=== PATIENT | male | born 1950 | race African-American/Black ===

== ENCOUNTER 2018-10-14 16:27 | Emergency (ER) | payer MEDICARE, OTHER ==
[~2018-10-14] VITALS: Ht 182.9 cm; Wt 86.4 kg
[~2018-10-14 16:27] MED LIST: ASPI81TA39 PO; OMEP20 PO
[2018-10-14 16:52] VITALS: BP 107/68
[2018-10-14] MEDS ORDERED: BACLOFEN 10 MG TABLET PO ONE (17:15)
[2018-10-14] MEDS ORDERED: KETOROLAC TROMETHAMINE 30 MG/ML VIAL IM ONE (17:15)
== END 2018-10-14 18:40 | disposition home or self-care (01) ==
LOC: EMS 16:27
DX: R25.2 Cramp and spasm (principal); M79.604 Pain in right leg; M79.605 Pain in left leg; G89.29 Other chronic pain; F17.210 Nicotine dependence, cigarettes, uncomplicated; K21.9 Gastro-esophageal reflux disease without esophagitis; Z79.82 Long term (current) use of aspirin
CPT/HCPCS: 96372; 99283; 99406; J1885

== ENCOUNTER 2019-01-10 09:40 | Emergency (ER) | payer MEDICARE, OTHER ==
[~2019-01-10] VITALS: Ht 182.9 cm; Wt 86.4 kg
[2019-01-10] MEDS ORDERED: ONDANSETRON HCL 4 MG TABLET PO ONE (11:00)
[2019-01-10] MEDS ORDERED: MAG HYDROX/AL HYDROX/SIMETH ES 30 ML SUSPENSION UDCUP PO ONE ×2 (11:00→12:45)
[2019-01-10 11:13] LABS: BASOPHILS % (AUTO) 0.8 % (0.0-2.0); EOSINOPHILS % (AUTO) 3.8 % (1.0-6.0); HEMATOCRIT 41.1 % (41-53); HEMOGLOBIN 13.7 g/dL (13.5-17.5); LYMPHOCYTES # (AUTO) 0.8 K/uL (1.0-4.8); MEAN CORPUSCULAR HEMOGLOBIN 35.3 pg (26.0-34.0); MEAN CORPUSCULAR HGB CONC 33.4 G/dL (31.0-37.0); MEAN CORPUSCULAR VOLUME 106 fL (80-100); MONOCYTES # (AUTO) 0.4 K/uL (0.1-1.0); MONOCYTES % (AUTO) 11.2 % (2.0-9.0); NEUTROPHILS # (AUTO) 2.1 K/uL (1.8-7.7); NEUTROPHILS % (AUTO) 60.2 % (40.0-70.0); PLATELET COUNT (AUTO) 171 K/uL (150-450); RED CELL DISTRIBUTION WIDTH 13.9 % (11.5-14.5)
[2019-01-10 11:18] LABS: ANION GAP 13 mmol/L (8-16); CALCIUM, TOTAL 8.6 mg/dL (8.8-10.5); CARBON DIOXIDE 24 mmol/L (22-29); CHLORIDE 102 mmol/L (98-107); CREATININE 1.14 mg/dL (0.60-1.30); GLOMERULAR FILTR. RATE CALC > 60 mL/min (>60); GLUCOSE,RANDOM 89 mg/dL (70-110); POTASSIUM 3.3 mmol/L (3.5-5.1); SODIUM SERUM 139 mmol/L (136-145); UREA NITROGEN, BLOOD 13 mg/dL (7-18)
[2019-01-10 11:23] LABS: ALANINE AMINOTRANSFERASE 33 U/L (12-78); ALBUMIN 3.3 g/dL (3.4-5.0); ALKALINE PHOSPHATASE 63 U/L (46-116); ASPARTATE AMINOTRANSFERASE 35 U/L (15-37); BILIRUBIN,TOTAL 0.6 mg/dL (0.1-1.0); LIPASE 81 U/L (73-393); TOTAL PROTEIN, SERUM 6.5 g/dL (6.4-8.2)
[2019-01-10] MEDS ORDERED: PHENOBARB/HYOSCY/ATROPINE/SCOP 5 ML UDCUP ELIXIR PO ONE (12:45)
[2019-01-10] MEDS ORDERED: LIDOCAINE 2% VISCOUS 15 ML SOLUTION UDCUP PO ONE (12:45)
[2019-01-10 13:47] VITALS: BP 96/66
== END 2019-01-10 15:13 | disposition home or self-care (01) ==
LOC: EMS 09:42
DX: K29.20 Alcoholic gastritis without bleeding (principal); F10.129 Alcohol abuse with intoxication, unspecified; K21.9 Gastro-esophageal reflux disease without esophagitis; R07.89 Other chest pain; F17.210 Nicotine dependence, cigarettes, uncomplicated; Y90.4 Blood alcohol level of 80-99 mg/100 ml; Z79.82 Long term (current) use of aspirin
CPT/HCPCS: 36415; 71045; 76700; 80053; 83690; 84484; 85025; 93005; 99284; 99406; G0480; Q0162

== ENCOUNTER 2020-12-17 03:41 | Emergency (ER) | payer MEDICARE, OTHER ==
[~2020-12-17] VITALS: Ht 182.9 cm; Wt 86.4 kg
[2020-12-17] MEDS ORDERED: CYCLOBENZAPRINE HCL 10 MG TABLET PO ONE (04:00)
[2020-12-17] MEDS ORDERED: KETOROLAC TROMETHAMINE 30 MG/ML VIAL IM ONE (04:00)
[2020-12-17 05:10] VITALS: BP 129/80
== END 2020-12-17 06:00 | disposition home or self-care (01) ==
LOC: EMS 03:41
DX: S39.012A Strain of muscle, fascia and tendon of lower back, initial encounter (principal); X58.XXXA Exposure to other specified factors, initial encounter; Y93.89 Activity, other specified; Y92.89 Other specified places as the place of occurrence of the external cause; Y99.8 Other external cause status
CPT/HCPCS: 96372; 99283; J1885

== ENCOUNTER 2023-02-08 12:13 | Emergency (ER) | payer MEDICARE, OTHER ==
[~2023-02-08] VITALS: Ht 182.9 cm; Wt 85.9 kg
[2023-02-08 12:22] VITALS: BP 134/73
[2023-02-08] MEDS ORDERED: KETOROLAC TROMETHAMINE 30 MG/ML VIAL IM ONE (12:45)
== END 2023-02-08 13:35 | disposition left against medical advice (07) ==
LOC: EMS 12:19
DX: M54.50 Low back pain, unspecified (principal); G89.29 Other chronic pain; F17.210 Nicotine dependence, cigarettes, uncomplicated; Z98.890 Other specified postprocedural states
CPT/HCPCS: 99283; J1885

== ENCOUNTER 2023-04-13 15:51 | Emergency (ER) | payer OTHER ==
[~2023-04-13] VITALS: Ht 170.2 cm; Wt 70.5 kg
[2023-04-13 15:59] VITALS: BP 120/68; PULSE 92; RESP 16; TEMP 98.7
[2023-04-13] MEDS ORDERED: KETOROLAC TROMETHAMINE 30 MG/ML VIAL IM ONE (17:00)
== END 2023-04-13 17:47 | disposition home or self-care (01) ==
LOC: EMS 15:53
DX: M54.32 Sciatica, left side (principal); G89.29 Other chronic pain; M54.9 Dorsalgia, unspecified; F17.210 Nicotine dependence, cigarettes, uncomplicated; Z98.890 Other specified postprocedural states; Z88.6 Allergy status to analgesic agent
CPT/HCPCS: 99283; 96372; J1885

== ENCOUNTER 2023-05-07 13:00 | Emergency (ER) | payer OTHER ==
[~2023-05-07] VITALS: Ht 185.4 cm; Wt 70.5 kg
[2023-05-07 20:41] VITALS: BP 131/82; PULSE 90; RESP 18; TEMP 98.3
[2023-05-07] MEDS ORDERED: ACET-66 PO (20:41)
[2023-05-07] MEDS ORDERED: IBUP-1554 PO (20:41)
[2023-05-07] MEDS ORDERED: IBUPROFEN 600 MG TABLET PO ONE (20:45)
== END 2023-05-07 21:34 | disposition home or self-care (01) ==
LOC: EMS 13:00
DX: M79.672 Pain in left foot (principal); M79.671 Pain in right foot; G89.29 Other chronic pain; M25.551 Pain in right hip; M17.10 Unilateral primary osteoarthritis, unspecified knee; F17.210 Nicotine dependence, cigarettes, uncomplicated; Z98.890 Other specified postprocedural states; Z88.5 Allergy status to narcotic agent
CPT/HCPCS: 99282; Z7502; Z7610

== ENCOUNTER 2024-08-06 06:06 | Emergency (ER) | payer MEDICARE, OTHER ==
[~2024-08-06] VITALS: Ht 182.9 cm; Wt 81.8 kg
[~2024-08-06 06:06] MED LIST changes: +ACET-66 PO; +IBUP-1554 PO
[2024-08-06 06:13] VITALS: TEMP 97.8
[2024-08-06 06:30] VITALS: BP 134/71; PULSE 79; RESP 18; O2SAT 98
[2024-08-06] MEDS ORDERED: CEPH-558 PO (06:56)
== END 2024-08-06 07:15 | disposition home or self-care (01) ==
LOC: EMS 06:09
DX: T83.091A Other mechanical complication of indwelling urethral catheter, initial encounter (principal); K21.9 Gastro-esophageal reflux disease without esophagitis; F17.210 Nicotine dependence, cigarettes, uncomplicated; Z88.5 Allergy status to narcotic agent; Z79.82 Long term (current) use of aspirin; Y84.6 Urinary catheterization as the cause of abnormal reaction of the patient, or of later complication, without mention of misadventure at the time of the procedure
CPT/HCPCS: 99283; Z7502